=== PATIENT | male | born 1990 | race Caucasian/White ===

== ENCOUNTER 2019-02-04 12:56 | Emergency (ER) | payer OTHER ==
[2019-02-04 13:12] VITALS: BP 125/60
--- NOTE | 2019-02-04 13:13 | PHYS DOC ---
Adult General Chief Complaint Chief Complaint: SUTURE/STAPLE REMOVAL [facility] HPI Patient is a 28-year-old male who presents for staple removal. Patient had cyst removed from scalp and has 3 heide. He indicates he has had no problems with it heide were placed on Tuesday.[] Review of Systems Review of Systems Constitutional: Denies fever or chills [] Respiratory: Denies cough or shortness of breath [] Cardiovascular: No additional information not addressed in HPI [] Neurologic: Denies headache, focal weakness or sensory changes [] Physical Exam Physical Exam Constitutional: Well developed, well nourished, no acute distress, non-toxic appearance. [] HENT: Normocephalic, atraumatic, wound site clean, dry and intact with no signs of infection. [] Skin: Warm, dry, no erythema, no rash. [] EKG EKG [] Radiology/Procedures Radiology/Procedures [] Course & Med Decision Making Course & Med Decision Making Pertinent Labs and Imaging studies reviewed. (See chart for details) [] Dragon Disclaimer Dragon Disclaimer This electronic medical record was generated, in whole or in part, using a voice recognition dictation system. Departure Departure: Impression: Primary Impression: Encounter for staple removal Disposition: HOME, SELF-CARE Condition: STABLE Referrals: VERÓNICA GONZALEZ PA-C (PCP) Patient Instructions: Staple Care and Removal, Staple Removal, Care After ALDAIR RODRÍGUEZ Jr. DO Feb 04, 2019 13:13
== END 2019-02-04 13:28 | disposition home or self-care (01) ==
LOC: ER 12:56
DX: S01.01XD Laceration without foreign body of scalp, subsequent encounter (principal); X58.XXXD Exposure to other specified factors, subsequent encounter
CPT/HCPCS: 99281

== ENCOUNTER → 2020-05-15 | Emergency (ER) | payer OTHER ==
[~2020-05-15] VITALS: Ht 185.4 cm; Wt 97.7 kg
[2020-05-15 09:34] LABS: INFLUENZA A PATIENT NEGATIVE (NEGATIVE); INFLUENZA B PATIENT NEGATIVE (NEGATIVE)
--- NOTE | 2020-05-15 09:42 | PHYS DOC ---
Past History Past Medical History: No Pertinent History Past Surgical History: No Surgical History Alcohol Use: None Drug Use: None General Adult EDM: Chief Complaint: FLU SYMPTOM HPI: HPI: 29-year-old male who denies any significant past medical history presents the ED with complaints of fever less than 24 hours, started at 8 PM, T-max 102.1, with associated headache, chills, body aches and sore throat. Patient is requesting Covid testing because his son is immunocompromised, only has 1 kidney and has history of RSV. Pt is isolating at home. Pt has no underlying lung disease. Is taking tylenol 1000mg qid. Review of Systems: Review of Systems: Constitutional: Denies diaphoresis Eyes: Denies change in visual acuity HENT: Denies nasal congestion or rhinorrhea Respiratory: Denies cough or shortness of breath Cardiovascular: Denies chest pain or edema GI: Denies abdominal pain, nausea, vomiting, bloody stools or diarrhea : Denies dysuria Musculoskeletal: Denies back pain or joint pain Integument: Denies rash Neurologic: Denies headache, neck pain or focal weakness or sensory changes Endocrine: Denies polyuria or polydipsia Lymphatic: Denies swollen glands Psychiatric: Denies depression or anxiety Allergies: Allergies: Allergies Coded Allergies Type Severity Reaction Last Updated Verified No Known Drug Allergies 02/04/19 No Physical Exam: PE: Constitutional: Well developed, well nourished, no acute distress, non-toxic appearance. HENT: Normocephalic, atraumatic, mild tonsillar erythema no exudates Eyes: EOMI, conjunctiva normal, no discharge. Neck: Normal range of motion, supple, Cardiovascular: S1/2 present, regular rhythm Lungs & Thorax: Speaking in full sentences, bilateral equal chest rise, no tachypnea or increased work of breathing Abdomen: soft, no tenderness, Skin: Warm, dry, no erythema, no rash. [] Back: No tenderness, no CVA tenderness. [] Extremities: No tenderness, no cyanosis, no edema Neurologic: Alert and oriented X 3, normal motor function, normal sensory function, no focal deficits noted. [] Psychologic: Affect normal, judgement normal, mood normal. [] Current Patient Data: Labs: Laboratory Tests Test 05/15/20 08:50 Influenza Type A (Rapid) Negative (NEGATIVE) Influenza Type B (Rapid) Negative (NEGATIVE) Group A Streptococcus Rapid Negative (NEGATIVE) EKG: EKG: [] Radiology/Procedures: Radiology/Procedures: [] Heart Score: Risk Factors: Risk Factors: DM, Current or recent (<one month) smoker, HTN, HLP, family history of CAD, obesity. Risk Scores: Score 0 - 3: 2.5% MACE over next 6 weeks - Discharge Home Score 4 - 6: 20.3% MACE over next 6 weeks - Admit for Clinical Observation Score 7 - 10: 72.7% MACE over next 6 weeks - Early Invasive Strategies Course & Med Decision Making: Course & Med Decision Making Pertinent Labs and Imaging studies reviewed. (See chart for details) COVID-19 CRITERIA: The patient was evaluated during the global COVID-19 pandemic, and that diagnosis was suspected/considered upon their initial presentation. Their evaluation, treatment and testing was consistent with current guidelines for patients who present with complaints or symptoms that may be related to COVID-19. Influenza and rapid strep were negative. Patient very well-appearing and nontoxic. Recommend supportive care. Covid test pending. Strict ED return precautions were given for chest pain, difficulties breathing, increased work of breathing, stroke symptoms or edema. Encouraged urgent outpatient follow-up with PMD. Life-threatening processes were considered but are low suspicion at this time, given history and physical exam. Pt was educated on all prescription medications and adverse effects. All patient's questions were answered and pt was stable at time of discharge. Life/limb-threatening differential includes but is not limited to, surgical abdomen (appendicitis, cholecystitis, diverticulitis, inflammatory bowel disease, abscess, perforation), meningitis, encephalitis, Eleazar's angina, endocarditis, myocarditis, life-threatening rash (necrotizing fasciitis), gynecologic and urologic emergencies (endometritis, ovarian/testicular torsion, TOA, obstructive nephropathy, prostatitis), head and neck abscess, infection concerning for sepsis or shock, or respiratory failure. I spoken with the patient and her caregivers. I explained the patient's condition, diagnoses and treatment plan based on the information available to me at this time. I have answered the patient and her caregiver's questions and addressed any concerns. The patient and her caregivers have a good understanding of patient's diagnosis, condition and treatment plan as can be ex pected at this point. Vital signs have been stable. Patient's condition is stable and appropriate for discharge from the emergency department. Patient will pursue further outpatient evaluation with primary care physician or other designated or consulting physician as outlined in the discharge instructions. The patient and/or caregivers are agreeable to this plan of care and follow-up instructions have been explained in detail. The patient and/or caregivers have received these instructions in written form and have expressed an understanding of the discharge instructions. The patient and/or caregivers are aware that any significant change of condition or worsening of symptoms should prompt immediate return to this or the closest emergency department or call to 911. Tonja Disclaimer: Dragon Disclaimer: This electronic medical record was generated, in whole or in part, using a voice recognition dictation system. Departure Departure: Impression: Primary Impression: Person under investigation for COVID-19 Additional Impressions: Fever Sore throat Disposition: 01 DC HOME SELF CARE/HOMELESS Condition: STABLE Referrals: VERÓNICA GONZALEZ PA-C (PCP) Patient Instructions: Sore Throat Additional Instructions: You have been tested for or diagnosed with COVID-19. It is an infection caused by a new type of coronavirus. COVID-19 will cause cold-like or mild flu symptoms in most. It can cause more severe symptoms like problems breathing in some. There is no treatment for COVID-19. The body will clear the infection over time. Self-care will help to ease discomfort. Steps to Take: Self-Care Rest as needed. Healthy habits may help you feel better. Steps include: Choose healthy foods including fruits and vegetables. Drink water throughout the day. Get plenty of sleep each night. If you smoke, try to quit. It may ease breathing. Avoid alcohol. Keep Others Healthy The virus can spread to others. Droplets are released every time you sneeze or cough. The droplets can get into the mouth, nose, or eyes of people near you and lead to infection. To lower the chances of spreading COVID-19 to others: Stay at home until your doctor has said it is safe to leave. If you tested positive this will mean staying isolated until both of the following are true: At least 7 days have passed since the start of illness. You are free of fever for at least 72 hours without the use of medicine. During this time: - Avoid public areas, events, or transportation. Do not return to work or school until your doctor has said it is safe to do so. - Call ahead if you need to go to a medical center. Let them know you may have COVID-19. It will help them guide you where to go. They may also ask you to wear a facemask when you come to the office. - If you call for emergency medical services, let them know you may have COVID- 19. While at home: - Try to avoid close contact with others. Stay about 6 feet away. - If possible, spend most of your time in a separate room from others. - Use a face mask if you will be in close contact with others such as sharing a room or vehicle. - Have someone wipe down common surfaces in the home. Use household electrophysiology technician every day on areas like doorknobs, counters, or sinks. - Cough or sneeze into a tissue. Throw the tissue away right after use. If a tissue is not available, cough or sneeze into your elbow. - Wash your hands often. Wash them after sneezing or coughing. Use soap and water and wash for at least 20 seconds. Alcohol based hand cocoa bean cleaner can be used if soap and water is not available. - Do not prepare food for others. Avoid sharing personal items like forks, spoons, or toothbrushes. - Avoid close contact with pets while you are sick. There is no evidence of the virus passing to pets. This is a safety step until more is known about this virus. Isolation can be frustrating. Social interaction can help. Keep in touch with friends and family through phone and tech options. You can still interact with others in your home, just keep a safe distance of about 6 feet. Follow-up: Your doctors office will check in with you to see if there are any changes in your health. You may be asked to keep track of symptoms to share with them. They will also let you know when you are clear to be in public again. Problems to Look Out For: Contact your doctor if your recovery is not going as you expect. Get emergency care if you have problems such as: - Trouble breathing - Nonstop chest pain or pressure - Changes in awareness, confusion, or problems waking - Lips or face have bluish color - Worsening of symptoms If you think you have an emergency, call for emergency medical services right away. [facility] DO May 15, 2020 09:42
== END ==
LOC: ER 08:21
DX: U07.1 COVID-19 (principal); J02.9 Acute pharyngitis, unspecified
CPT/HCPCS: 87070; 87804; 87880; 99283; U0003

== ENCOUNTER 2021-03-02 20:43 | Emergency (ER) | payer OTHER ==
[~2021-03-02] VITALS: Ht 185.4 cm; Wt 97.7 kg
[2021-03-02 20:45] VITALS: BP 129/81
[2021-03-02] MEDS ORDERED: TETRACAINE 0.5% OPHTH SOLUTION 4ML BOTTLE. OS ONE (21:45)
[2021-03-02] MEDS ORDERED: FLUORESCEIN 1MG EYE STRIP. OS ONE (21:45)
--- NOTE | 2021-03-02 21:50 | PHYS DOC ---
Past History Past Medical History: No Pertinent History (ALFIE KENDALL) Past Surgical History: No Surgical History (ALFIE KENDALL) Alcohol Use: None Drug Use: None (ALFIE KENDALL) General Adult EDM: Chief Complaint: EYE PROBLEMS Problems: (1) Left eye pain (ALFIE KENDALL) HPI: HPI: Patient is a 30 year old male who presents with left eye pain. Patient states he was using an edging landscaping tool when a rock flew up to his eye approximately 19:30. He reports mild discomfort, but is primarily concerned about vision loss and/or infection. He denies changes in visual acuity and discharge. Patient has no other complaints at this time. (ALFIE KENDALL) Review of Systems: Review of Systems: Constitutional: Denies fever or chills Eyes: See HPI HENT: Denies nasal congestion or sore throat Respiratory: Denies cough or shortness of breath Cardiovascular: Denies chest pain or edema Neurologic: Denies headache, focal weakness or sensory changes (ALFIE KENDALL) Allergies: Allergies: Allergies Coded Allergies Type Severity Reaction Last Updated Verified No Known Drug Allergies 02/04/19 No (ALFIE KENDALL) Physical Exam: PE: Constitutional: Well developed, well nourished, no acute distress, non-toxic appearance. [] HENT: Normocephalic, atraumatic, bilateral external ears normal, oropharynx moist, no oral exudates, nose normal. [] Eyes: Visual acuity 20/20 bilaterally. Medial scleral injection to the left eye. Right eye conjunctiva moist and pink. PERRLA, EOMI, no discharge. [] Cardiovascular:Heart rate regular rhythm, no murmur [] Lungs & Thorax: Bilateral breath sounds clear to auscultation [] Skin: Warm, dry, no erythema, no rash. [] Neurologic: Alert and oriented X 3, normal motor function, normal sensory function, no focal deficits noted. [] (ALFIE KENDALL) EKG: EKG: [] (ALFIE KENDALL) Radiology/Procedures: Radiology/Procedures: [] (ALFIE KENDALL) Heart Score: C/O Chest Pain: N/A (ALFIE KENDALL) Course & Med Decision Making: Course & Med Decision Making Pertinent Labs and Imaging studies reviewed. (See chart for details) On fluorescein stain and exam with Hillman lamp, no corneal abrasions are noted. Patient is comfortable and is reassured, ready to go home. (ALFIE KENDALL) Dragon Disclaimer: Dragon Disclaimer: This electronic medical record was generated, in whole or in part, using a voice recognition dictation system. (ALFIE KENDALL) Departure Departure: Impression: Primary Impression: Left eye pain Disposition: HOME / SELF CARE / HOMELESS Condition: STABLE Referrals: PCP,UNKNOWN (PCP) Additional Instructions: You may take ibuprofen, as discussed, for pain and reduction of inflammation. If any discharge, changes in vision or worsening pain is noted, please return to the emergency department. Attending Signature Attending Signature I have participated in the care of this patient and I have reviewed and agree with all pertinent clinical information above including history, exam, and recommendations. (EMANUEL DAVIS MD) ALFIE KENDALL Mar 02, 2021 21:50 EMANUEL DAVIS MD Mar 04, 2021 07:21
== END 2021-03-02 22:27 | disposition home or self-care (01) ==
LOC: ER 20:43
DX: H57.12 Ocular pain, left eye (principal)
CPT/HCPCS: 99283